=== PATIENT | female | born 1970 | race Caucasian/White ===

== ENCOUNTER 2024-10-09 17:53 | Emergency (ER) | payer OTHER ==
[~2024-10-09] VITALS: Ht 162.6 cm; Wt 99.8 kg
[~2024-10-09 17:53] MED LIST: DUEXIS 800-26.1 EACH PO; SOTALOL80 MG PO; XANAX0.5 MG PO; ZOLOFT50 MG PO
[2024-10-09] MEDS ORDERED: KETOROLAC TROMETHAMINE 60 MG/2 ML VIAL ONE (19:39)
[2024-10-09] MEDS ORDERED: CYCLOBENZAPRINE HCL 10 MG TAB ONE (19:39)
[2024-10-09] MEDS: CYCLOBENZAPRINE HCL 10 MG TAB PO ONE (19:42)
[2024-10-09] MEDS: KETOROLAC TROMETHAMINE 60 MG/2 ML VIAL IM ONE (19:42)
[2024-10-09 21:30] VITALS: PULSE 76; RESP 17; TEMP 98.1
[2024-10-09] MEDS ORDERED: CYCLOBENZAPRINE10 MG PO (22:17)
[2024-10-09 23:14] VITALS: BP 138/99; PULSE 76; RESP 17; TEMP 98.1; O2SAT 97
[2024-10-09] MEDS ORDERED: IBUPROFEN800 MG PO (23:18)
== END 2024-10-09 23:20 | disposition home or self-care (01) ==
LOC: ER 19:26
DX: S22.080A Wedge compression fracture of T11-T12 vertebra, initial encounter for closed fracture (principal); V28.09XA Other motorcycle driver injured in noncollision transport accident in nontraffic accident, initial encounter; Y92.488 Other paved roadways as the place of occurrence of the external cause; I48.91 Unspecified atrial fibrillation; Z98.84 Bariatric surgery status
CPT/HCPCS: 72128; 99283; J1885